=== PATIENT | male | born 1985 | race Caucasian/White ===

== ENCOUNTER 2017-04-23 18:43 | Emergency (ER) | payer BC ==
[2017-04-23 19:37] VITALS: BP 133/89
[2017-04-23] MEDS ORDERED: Sodium Chloride 0.9% 1,000 ML IV ONE (20:46)
[2017-04-23] MEDS ORDERED: ceFAZolin 1 GM in Sodium Chloride 0.9% 50 ML IV ONE (20:59)
--- NOTE | 2017-04-26 14:48 | ER ---
DATE SEEN: 04/23/2017 CHIEF COMPLAINT: Bull trauma 3 weeks ago. His right leg was forced against a steel fence. As he was trying to climb over, the bull pressed him into the fence, and he had trauma to his right lower extremity. He has gotten along well, except for his son today, at about 12 noon, the knee of his 8-year- old fell against patient's grissom. He has pain in his grissom, swelling, tenderness, and redness. The patient has psoriasis and has rash over his right and left lower extremities. He is a muscular rivera, who chews tobacco occasionally, otherwise healthy. No diabetes, heart disease, high blood pressure, or other serious illnesses. However, he uses Lamictal, liothyronine, Cytomel (T3), fexofenadine for allergies, fluoxetine, Prozac for depression, dextroamphetamine, Adderall ADHD. 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 He is no longer taking Lamictal and no longer taking dextroamphetamine. He has "tough time" with depression in this last year and is beginning to get over it but is still taking Prozac. The patient is nonsmoker, drinks alcohol occasionally. He chews snuff and is working very hard in decreasing it. Uses Nicorette lozenges intermittently. He has been fairly successful to date. He is not a smoker. Alcohol infrequent. REVIEW OF SYSTEMS: HEENT: Negative. CARDIORESPIRATORY: Negative. GASTROINTESTINAL: Negative. MUSCULOSKELETAL: Negative. PSYCHIATRIC: Depression. NEUROLOGIC: Negative. PHYSICAL EXAMINATION: VITAL SIGNS: Blood pressure 133/89, heart rate 114, respirations 20, oxygen saturations 100%, and temperature is 36.9 degrees centigrade. Heart rate 103. GENERAL: Muscular, slightly overweight gentleman who is in mild distress. He is concerned about his right lower anterior tibial swelling and lump. This is very tender and impacts his walking. HEENT: PERRLA intact. Hearing is appropriate. Pharynx without abnormality. Gag is in place. NECK: No thyromegaly or masses in neck. No cervical adenopathy. LUNGS: Clear to auscultation without rales, rhonchi, or wheezes. HEART: S1, S2. Sinus tachycardia. ABDOMEN: Soft. No guarding. No abdominal discomfort. EXTREMITIES: Right lower extremity, there is a 5 x 3 cm area of marked tenderness, slight swelling, redness, no linear angiitis, no suggestion of compartment syndrome. The rest of his lower extremity is soft, resilient, and easily squeezed without pain. Gastrocs negative. No popliteal abnormality or venous abnormality at the proximal thigh superficial and deep venous structures. No edema in lower extremities. Sensation intact. Capillary refill intact, and he has moderate psoriatic dryness, crusting of the skin in both lower extremities. DIAGNOSTIC STUDIES: Blood cultures two sets obtained. White count is elevated at 19,300, PMNs 84, lymphocytes 7. Sodium 134, potassium 3.7, chloride 99. C-reactive protein 1.1, but this is a surprise, expected it would be higher. ALT is 31 and AST is 24. Creatinine is 0.8, BUN is 11, and GFR is greater than 60. Absolute neutrophils greater than 16,000. ASSESSMENT: 1. Rule out infection mediated process causing tachycardia. Tachycardia could be secondary to nicotine withdrawal, but he is working on and off using his Nicorette lozenges for nicotine withdrawal, and he does not feel this is an issue. He has been working on this for the last 3 weeks, so it is not like there had been a dramatic change yesterday stopping his oral tobacco chews, but still his heart rate is elevated. 2. Tachycardia, etiology indeterminate, rule out myocarditis, rule out cardiac involvement. EKG is normal, except for sinus tachycardia. It could be stress or anxiety causing this also, since he has had issue of depression and he is no longer taking his antidepressants and also his amphetamines. 3. Obesity. 4. Rule out cellulitis. 5. Rule out osteomyelitis. He had CT of this lower extremity, did not demonstrate any involvement of osteomyelitis with the soft tissue swelling noted over the right tibia. 6. Cellulitis, etiology indeterminate. PLAN: Treat as a gram-positive organism. He is not diabetic, but [place], so he could have an aggressive bacteria from the farm which has entered through his lower extremity psoriatic dry crusted skin. There are no lesions between his toes, but he has dry crusted skin, so it could be a source of infection. Plan is to follow up with doctor in 24 hours, elevate, and he is not to walk on it. He is not to do more than go to the bathroom and eat, otherwise stay off his leg. Warm moist packs, soaks around the clock. Follow up with doctor in 24 hours. The area of involvement has been marked with indelible pen. DIAGNOSES: 1. Cellulitis. 2. Depression. 3. No evidence for periosteal hematoma. 4. No evidence for osteomyelitis. 5. Tachycardia, etiology indeterminate, rule out Streptococcus B process or bacteremia process or early cellulitis, early sepsis involvement. Treat conservatively with outpatient therapy, follow up with doctor in 24 hours. If not improved, then he needs to be admitted to the hospital and treated with IV antibiotic. The patient was seen at 1810 hours. /[id number] MARY CARMEN/CHANEL CALHOUN
== END 2017-04-23 22:30 | disposition home or self-care (01) ==
LOC: FB.ED 18:43
DX: L03.115 Cellulitis of right lower limb (principal); F32.9 Major depressive disorder, single episode, unspecified; R00.0 Tachycardia, unspecified
CPT/HCPCS: 36415; 73700; 80053; 85025; 85651; 86140; 87040; 87081; 87430; 93005; 96361; 96365; 96366; 99284; J0690; J7040; J7050